=== PATIENT | female | born 1995 | race Caucasian/White ===

== ENCOUNTER 2021-03-07 12:33 | Emergency (ER) | payer OTHER ==
--- NOTE | 2021-03-07 13:38 | EDM.PDOC ---
ED HPI GENERAL MEDICAL PROBLEM - General Chief Complaint: Abdominal Pain Stated Complaint: ABD PAIN, BACK PAIN Time Seen by Provider: 03/07/21 13:15 Source of Information: Reports: Patient, Family, RN, RN Notes Reviewed History Limitations: Reports: No Limitations - History of Present Illness INITIAL COMMENTS - FREE TEXT/NARRATIVE: Patient was seen in the ER in [place] on 624 for abdominal pain. She was discharged to home without diagnosis or resolution of her of her problem. She chose to leave the ER without completing recommended CT and see if symptoms would improve on her own after ultrasound was normal. Patient continues with abdominal pain nausea vomiting and diarrhea. Pain goes through to her mid back. She states she feels bloated and has had limited intake over the last couple of days. Patient did find relief from IV hydromorphone in the ER during her stay however by the time she left the ER this it wore off and her symptoms had returned. Patient is continued on a limited diet try to increase fluids but symptoms persist. She does admit to marijuana use which she purchases from a controlled environment. She does use daily and has for the last 2 to 3 years. Onset: Gradual (t-3) Onset Date: 03/04/21 Duration: Hour(s):, Colic, Getting Worse Location: Reports: Abdomen (Upper right quadrant) Quality: Reports: Ache, Pressure Severity: Moderate Improves with: Reports: Rest Worsens with: Reports: Eating Context: Reports: Sick Contact Associated Symptoms: Reports: Loss of Appetite, Nausea/Vomiting. Denies: Confusion, Chest Pain, Cough, Diaphoresis, Fever/Chills, Headaches, Rash, Seizure, Shortness of Breath, Syncope, Weakness Treatments VEGETABLE CUTTER: Reports: NSAIDS Abdomen Pain Score (Numeric/FACES): 8 - Related Data Allergies Allergy/AdvReac Type Severity Reaction Status Date / Time No Known Allergies Allergy Verified 03/07/21 12:55 Home Meds: Home Meds ALPRAZolam [Xanax] 0.5 mg PO BID 03/07/21 [History] Bismuth Subsalicylate [Pepto Bismol] 262 mg PO ASDIRECTED 03/07/21 [History] FLUoxetine [PROzac] 60 mg PO DAILY 03/07/21 [History] Venlafaxine [Effexor XR 24 Hr] 37.5 mg PO DAILY 03/07/21 [History] busPIRone [Buspar] 15 mg PO BID 03/07/21 [History] Past Medical History HEENT History: Reports: Impaired Vision Musculoskeletal History: Reports: Fracture Psychiatric History: Reports: Depression Social & Family History - Recreational Drug Use Recreational Drug Type: Reports: Marijuana/Hashish ED ROS GENERAL - Review of Systems Review Of Systems: See Below Constitutional: Reports: Decreased Appetite. Denies: Weight Loss HEENT: Reports: No Symptoms Respiratory: Reports: No Symptoms Cardiovascular: Reports: No Symptoms Endocrine: Reports: No Symptoms GI/Abdominal: Reports: Abdominal Pain, Anorexia, Diarrhea, Decreased Appetite, Nausea, Vomiting : Reports: No Symptoms Musculoskeletal: Reports: No Symptoms Skin: Reports: No Symptoms Neurological: Reports: No Symptoms Psychiatric: Reports: No Symptoms Hematologic/Lymphatic: Reports: No Symptoms Immunologic: Reports: No Symptoms ED EXAM, GI/ABD - Physical Exam Exam: See Below Text/Narrative:: Patient lying on stretcher without noted distress.. Mother present in the room. Patient able to communicate needs does have tenderness over upper right quadrant. Recent ultrasound and ER notes reviewed from [place]. All lab work was within defined limits ultrasound showed no evidence of cholelithiasis or Soc[place] cystitis had a normal common bile duct there was some fatty infiltration of the liver. test was negative. Patient did deny a CT prior to leaving as she wanted to see if symptoms would improve at home. She is consenting to a CT today. Exam Limited By: No Limitations General Appearance: Alert, WD/WN, No Apparent Distress Throat/Mouth: Normal Inspection, Normal Lips, Normal Teeth, Normal Gums Head: Atraumatic, Normocephalic Neck: Normal Inspection, Supple, Non-Tender Respiratory/Chest: No Respiratory Distress, Lungs Clear, Normal Breath Sounds, No Accessory Muscle Use, Chest Non-Tender Cardiovascular: Normal Peripheral Pulses, Regular Rate, Rhythm, No Edema, No Gallop, No JVD, No Murmur, No Rub GI/Abdominal Exam: Normal Bowel Sounds, Soft, No Organomegaly, No Distention, No Abnormal Bruit, No Mass, Pelvis Stable, Tender (Right upper quadrant) Back Exam: Normal Inspection, Full Range of Motion Extremities: Normal Inspection, Normal Range of Motion Neurological: Alert, Oriented, CN II-XII Intact Psychiatric: Normal Affect, Normal Mood Skin Exam: Warm, Dry, Intact, Normal Color, No Rash Lymphatic: No Adenopathy Course - Vital Signs Text/Narrative:: Vital signs stable no fever Last Recorded V/S: Last Vital Signs Temp 36.4 C 03/07/21 12:53 Pulse 73 03/07/21 12:53 Resp 16 03/07/21 12:53 BP 138/71 03/07/21 12:53 Pulse Ox 98 03/07/21 12:53 - Orders/Labs/Meds Orders: Active Orders 24 hr Category Date Time Status DRUG SCREEN, URINE [URCHEM] Stat Lab 03/07/21 13:48 Ordered Peripheral IV Insertion Adult [OM.PC] Routine Oth 03/07/21 13:49 Ordered Labs: UA for drug screen not collected. Meds: Medications Discontinued Medications Generic Name Dose Route Start Last Admin Trade Name Freq PRN Reason Stop Dose Admin Diphenhydramine HCl 50 mg 03/07/21 13:45 03/07/21 14:35 Diphenhydramine 50 Mg/Ml Sdv IVPUSH 03/07/21 13:46 50 mg ONETIME ONE Administration Sodium Chloride 1,000 mls @ 150 mls/hr 03/07/21 14:00 03/07/21 14:34 Normal Saline IV 150 mls/hr ASDIRECTED NAHUN Administration Prochlorperazine Edisylate 10 mg 03/07/21 14:07 03/07/21 14:34 Prochlorperazine 10 Mg/2 Ml Sdv IVPUSH 03/07/21 14:08 10 mg ONETIME ONE Administration Sodium Chloride 10 ml 03/07/21 13:49 Sodium Chloride 0.9% 10 Ml Syringe FLUSH ASDIRECTED PRN Keep Vein Open - Radiology Interpretation Free Text/Narrative:: CT of abdomen per radiology read: no abnormal findings. - Re-Assessments/Exams Free Text/Narrative Re-Assessment/Exam: 03/07/21 15:08 Education patent on current CT findings. Reviewed previous findings from [facility] with patient. No explanation on imaging or studies for current abdominal pain. Lab work from [place] was within normal limits. This was not repeated here. Compazine with Benadryl and IV fluids has promoted comfort patient no longer nauseous or having intense abdominal pain. Patient educated regarding emesis/abdominal pain related to marijuana use. Information provided to patient and patient's mother.. Patient will evaluate current symptoms compared to those symptoms listed with handout. Patient instructed to stop marijuana use. To see whether or not symptoms return. Patient is more than welcome to return to the ER or see her primary care provider if her symptoms return for further evaluation Departure - Departure Time of Disposition: 15:32 Disposition: Home, Self-Care 01 Condition: Fair Clinical Impression: Abdominal pain, Marijuana use, continuous - Discharge Information *PRESCRIPTION DRUG MONITORING PROGRAM REVIEWED*: Not Applicable *COPY OF PRESCRIPTION DRUG MONITORING REPORT IN PATIENT MK: Not Applicable Instructions: Nausea and Vomiting, Adult, [id number], Abdominal Pain, Adult, [id number], What You Need to Know About Marijuana Use, Cannabinoid Hyperemesis Syndrome Referrals: Petrona Mcneill PA [Primary Care Provider] - Forms: ED Department Discharge Additional Instructions: Patient to stop marijuana use. Patient oral intake as tolerated start with bland diet. Patient to return to clinic or the ER if symptoms return. Patient provided copy of CT showing normal study. Sepsis Event Note (ED) - Evaluation Sepsis Screening Result: No Definite Risk - Focused Exam Vital Signs: Vital Signs Temp Pulse Resp BP Pulse Ox 03/07/21 12:53 36.4 C 73 16 138/71 98 - My Orders Last 24 Hours: My Active Orders 03/07/21 13:48 DRUG SCREEN, URINE [URCHEM] Stat 03/07/21 13:49 Peripheral IV Insertion Adult [OM.PC] Routine - Assessment/Plan Last 24 Hours: My Active Orders 03/07/21 13:48 DRUG SCREEN, URINE [URCHEM] Stat 03/07/21 13:49 Peripheral IV Insertion Adult [OM.PC] Routine Assessment:: Abdominal pain related to marijuana use Plan: Stop marijuana use. Evaluate for cessation of symptoms once marijuana use stops. Follow-up with primary care provider if symptoms return.
[2021-03-07] MEDS ORDERED: Prochlorperazine 10 MG in Sodium Chloride 0.9% 50 ML IV ONE (13:45)
[2021-03-07] MEDS ORDERED: diphenhydrAMINE 50 MG/ML SDV IVPUSH ONE (13:45)
[2021-03-07] MEDS ORDERED: Sodium Chloride 0.9% 10 ML Syringe FLUSH PRN (13:49)
[2021-03-07] MEDS ORDERED: Sodium Chloride 0.9% 1,000 ML IV SCH (14:00)
[2021-03-07] MEDS ORDERED: Prochlorperazine 10 MG/2 ML SDV IVPUSH ONE (14:07)
--- NOTE | 2021-03-07 14:31 | CRLCT ---
For Patients: As a result of the Century Cures Act, medical imaging exams and procedure reports are released immediately into your electronic medical record. You may view this report before your referring provider. If you have questions, please contact your health care provider. HISTORY: Back and right upper quadrant pain and pressure. TECHNIQUE: CT abdomen and pelvis without contrast. COMPARISON: None. FINDINGS: Abdomen: Liver, pancreas, spleen, adrenal glands, and kidneys are unremarkable. No urinary tract calculi. No hydronephrosis. No dilated bowel. Appendix is normal. Trace free fluid in the pelvis. No lymphadenopathy. Abdominal aorta is not dilated. Pelvis: No lymphadenopathy. Musculoskeletal: Unremarkable. Lower chest: Minimal atelectasis in the right lower lobe and lingula. IMPRESSION: Trace free fluid in the pelvis is nonspecific and may be physiologic. No acute abnormality in the abdomen or pelvis otherwise. Please note that all CT scans at this facility use dose modulation, iterative reconstruction, and/or weight-based dosing when appropriate to reduce radiation dose to as low as reasonably achievable. Dictated by Sean Pruett MD @ 03/07/2021 2:30:[address] Sean Pruett @ Mar 07 2021 2:30PM
== END 2021-03-07 15:31 | disposition home or self-care (01) ==
LOC: JP.ED 12:33
DX: R10.11 Right upper quadrant pain (principal); F12.90 Cannabis use, unspecified, uncomplicated
CPT/HCPCS: 74176; 96374; 96375; 99284; J0780; J1200; J7030